=== PATIENT | male | born 1985 | race Caucasian/White ===

== ENCOUNTER 2019-11-21 10:21 | Emergency (ER) | payer SELFPAY ==
--- NOTE | 2019-11-21 10:58 | REPVR ---
PROCEDURE INFORMATION: Exam: XR Chest, 1 View Exam date and time: 11/21/19 (10:47am) Age: 34 years old Clinical indication: Chest pain TECHNIQUE: Imaging protocol: XR of the chest Views: 1 view COMPARISON: No relevant prior studies available FINDINGS: Lungs: Unremarkable. No consolidation. Pleural space: Unremarkable. No pleural effusions. No pneumothorax. Heart/Mediastinum: Unremarkable. No cardiomegaly. Bones/joints: Unremarkable. IMPRESSION: No acute findings. Clear lung beltre. Electronically signed by: Karely Mann On 11/21/2019 10:58:28 AM
[2019-11-21] MEDS ORDERED: POTASSIUM CHLORIDE 10 MEQ SR TABLET PO ONE (11:15)
[2019-11-21 11:27] LABS: BASO % 0.4 % (0.0-1.0); EOS # 0.2 10^3/uL (0.0-0.5); EOS % 1.7 % (0.0-3.0); HEMATOCRIT 46.6 % (42.0-52.0); HEMOGLOBIN 15.6 g/dl (13.5-17.5); LYMPH # 2.2 10^3/uL (1.5-5.0); LYMPH % 19.2 % (24.0-44.0); MEAN CORPUSCULAR HEMOGLOBIN 28.7 pg (27.0-33.0); MEAN CORPUSCULAR HGB CONC 33.5 g/dl (32.0-36.5); MEAN CORPUSCULAR VOLUME 85.7 fl (80.0-96.0); MONO # 0.9 10^3/uL (0.0-0.8); MONO % 7.6 % (0.0-5.0); NEUTROPHILS % 70.6 % (36.0-66.0); PLATELET COUNT, AUTOMATED 314 10^3/uL (150-450); RED BLOOD COUNT 5.44 10^6/uL (4.30-6.10); WHITE BLOOD COUNT 11.4 10^3/uL (4.0-10.0)
[2019-11-21 11:38] LABS: INR 0.99; PROTHROMBIN TIME 13.3 SECONDS (12.5-14.3)
[2019-11-21 11:48] LABS: D-DIMER QUANT < 270 ng/ml (<500)
[2019-11-21 12:00] LABS: ALBUMIN 4.3 GM/DL (3.2-5.2); BILIRUBIN,DIRECT 0.3 MG/DL (0.0-0.2); BILIRUBIN,TOTAL 0.9 MG/DL (0.2-1.0); ERYTHROCYTE SEDIMENTATION RATE 33 mm/hr (0-15); THYROID STIMULATING HORMONE 1.65 uIU/ML (0.358-3.740); TOTAL PROTEIN 8.3 GM/DL (6.4-8.2)
[2019-11-21 12:30] VITALS: BP 116/66
--- NOTE | 2019-11-21 12:58 | ECGEPIP ---
[facility] - ED Test Date: 2019-11-21 Pat Name: KONG FLORES Department: Room: - Gender: Male Relish Maker: VINNY : [id number] Requested By: Nohemi Rordiges Order Number: [id number] Reading MD: Hamilton Lau Measurements Intervals [place] Rate: 84 P: -29 NM: 165 QRS: 53 QRSD: 97 T: 26 QT: 365 QTc: 433 Interpretive Statements SINUS RHYTHM NONSPECIFIC ST & T-WAVE ABNORMALITY BASELINE ARTIFACT AFFECTS INTERPRETATION NO PRIORS FOR COMPARISON Electronically Signed on 11-21-2019 12:58:17 EDT by Hamilton Lau
== END 2019-11-21 12:51 | disposition home or self-care (01) ==
LOC: EDBD 10:21 → M ED 10:21
DX: R07.9 Chest pain, unspecified (principal)